=== PATIENT | male | born 2000 | race Caucasian/White ===

== ENCOUNTER 2022-12-05 00:14 | Emergency (ER) | payer OTHER ==
[~2022-12-05] VITALS: Ht 182.9 cm; Wt 93.0 kg
[2022-12-05] MEDS ORDERED: IBUPROFEN 400 MG TABLET PO ONE (00:30)
[2022-12-05] MEDS ORDERED: IBUPROFEN 400 MG TABLET ONE (00:33)
[2022-12-05 01:21] VITALS: BP 135/87; TEMP 208.4; O2SAT 100
== END 2022-12-05 01:22 | disposition home or self-care (01) ==
LOC: ER 00:30
DX: S63.591A Other specified sprain of right wrist, initial encounter (principal); S63.592A Other specified sprain of left wrist, initial encounter; V89.2XXA Person injured in unspecified motor-vehicle accident, traffic, initial encounter; Y93.89 Activity, other specified; Y92.89 Other specified places as the place of occurrence of the external cause; Y99.8 Other external cause status
CPT/HCPCS: 73110